=== PATIENT | male | born 1980 | race African-American/Black ===

== ENCOUNTER 2021-03-12 07:10 | Emergency (ER) | payer MEDICAID ==
[~2021-03-12] VITALS: Ht 190.5 cm; Wt 81.0 kg
[2021-03-12 07:33] VITALS: BP 127/83
== END 2021-03-12 08:03 | disposition home or self-care (01) ==
LOC: ER 07:10
DX: N50.1 Vascular disorders of male genital organs (principal); S30.813A Abrasion of scrotum and testes, initial encounter; X58.XXXA Exposure to other specified factors, initial encounter; Y93.89 Activity, other specified; Y92.89 Other specified places as the place of occurrence of the external cause
CPT/HCPCS: 99281